=== PATIENT | female | born 1940 | race Caucasian/White ===

== ENCOUNTER 2020-02-12 19:44 | Inpatient (IN) | payer MEDICARE, OTHER ==
[~2020-02-12] VITALS: Ht 157.5 cm; Wt 91.2 kg
[2020-02-12] MEDS ORDERED: PIPER-TAZ 3.375 GM 50 ML IV ONE (20:15)
[2020-02-12] MEDS ORDERED: SODIUM CHLORIDE 0.9% 1000ML 1,000 ML IV ONE (20:15)
[2020-02-12] MEDS ORDERED: VANCOMYCIN 1GM/NS 250 ML 250 ML IV ONE (20:15)
[2020-02-12] MEDS ORDERED: SODIUM CHLORIDE 0.9% 1000ML 1,000 ML ONE (20:23)
--- NOTE | 2020-02-12 20:23 | Emergency Department Note ---
History of Present Illnes History of Present Illness Chief Complaint: Extremity Trauma/Pain History of Present Illness This is a 79 year old female c/o bilateral wounds to feet and heel areas for about a month. Surrounding tissue is red and painful to touch. . 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 Any updates have been documented here. Past Medical History Recent Fever: No Clinical Suspicion of Infectio: Yes New/Unexplained Change in Ment: No Past Medical History: Diabetes Other Medical History: arthritis lymphedma Past Surgical History: Hysterectomy, Social History Smoking Cessation: Never Smoker Alcohol Use: None Any Illegal Drug Use: No Family History Family history of heart diseas: No Other family history htn,dm Review of Systems Review of Systems Constitutional: Reports no symptoms EENTM: Reports no symptoms Cardiovascular: Reports no symptoms Respiratory: Reports no symptoms Gastrointestinal: Reports no symptoms Genitourinary: Reports no symptoms Musculoskeletal: Reports no symptoms Integumentary: Reports as per HPI Neurological: Reports no symptoms Psychological: Reports no symptoms Endocrine: Reports no symptoms Hematological/Lymphatic: Reports no symptoms Physical Exam Related Data Allergies: Coded Allergies: lisinopril (Verified Allergy, Unknown, 02/12/20) Triage Vital Signs Vital Signs Date Time Temp Pulse Resp B/P (MAP) Pulse Ox O2 Delivery O2 Flow Rate FiO2 02/12/20 19:59 97.9 119 22 143/108 100 Room Air Vital signs reviewed: Yes Physical Exam CONSTITUTIONAL Constitutional: Present well-developed, Present well-nourished; Absent distressed HENT HENT: Present normocephalic, Present atraumatic, Present oropharynx clear/moist, Present nose normal HENT L/R: Present left ext ear normal, Present right ext ear normal EYES Eyes: Reports PERRL, Reports conjunctivae normal NECK Neck: Present ROM normal PULMONARY Pulmonary: Present effort normal, Present breath sounds normal CARDIOVASCULAR Cardiovascular: Present regular rhythm, Present irregular rhythm, Present heart sounds normal, Present capillary refill normal, Present tachycardia GASTROINTESTINAL Abdominal: Present soft, Present nontender, Present bowel sounds normal GENITOURINARY Genitourinary: Present exam deferred SKIN pt with erythema and weeping to bilateral lower extremities with mild purulent drainage present pt with open wound to right heal, peeling of skin of bottom of both feet Skin: Present other MUSCULOSKELETAL Musculoskeletal: Present ROM normal NEUROLOGICAL Neurological: Present alert, Present oriented x 3, Present no gross motor or sensory deficits PSYCHOLOGICAL Psychological: Present mood/affect normal, Present judgement normal Results Laboratory Laboratory Laboratory Tests Test 02/12/20 21:44 02/12/20 20:11 Lactic Acid Level 2.2 mmol/L (0.5-2.0) 2.5 mmol/L (0.5-2.0) White Blood Count 8.43 x10e3/uL (4.8-10.8) Red Blood Count 5.45 x10e6/uL (3.6-5.1) Hemoglobin 14.1 g/dL (12.0-16.0) Hematocrit 43.5 % (34.2-44.1) Mean Corpuscular Volume 79.8 fL (81-99) Mean Corpuscular Hemoglobin 25.9 pg (28-32) Mean Corpuscular Hemoglobin Concent 32.4 g/dL (31-35) Red Cell Distribution Width 17.2 % (11.7-14.4) Platelet Count 222 x10e3/uL (140-360) Neutrophils (%) (Auto) 66.7 % (38.7-80.0) Lymphocytes (%) (Auto) 21.2 % (18.0-39.1) Monocytes (%) (Auto) 8.5 % (4.4-11.3) Eosinophils (%) (Auto) 2.5 % (0.0-6.0) Basophils (%) (Auto) 0.6 % (0.0-1.0) Neutrophils # (Auto) 5.6 (2.1-6.9) Lymphocytes # (Auto) 1.8 (1.0-3.2) Monocytes # (Auto) 0.7 (0.2-0.8) Eosinophils # (Auto) 0.2 (0.0-0.4) Basophils # (Auto) 0.1 (0.0-0.1) Absolute Immature Granulocyte (auto 0.04 x10e3/uL (0-0.1) Prothrombin Time 14.8 seconds (11.9-14.5) Prothromb Time International Ratio 1.10 Activated Partial Thromboplast Time 34.7 seconds (23.8-35.5) Sodium Level 135 mmol/L (136-145) Potassium Level 3.3 mmol/L (3.5-5.1) Chloride Level 96 mmol/L (98-107) Carbon Dioxide Level 24 mmol/L (22-29) Anion Gap 18.3 mmol/L (8-16) Blood Urea Nitrogen 20 mg/dL (7-26) Creatinine 0.97 mg/dL (0.57-1.11) Estimat Glomerular Filtration Rate 55 ML/MIN (60-) BUN/Creatinine Ratio 21 (6-25) Glucose Level 123 mg/dL (74-118) Calcium Level 9.2 mg/dL (8.4-10.2) Total Bilirubin 1.1 mg/dL (0.2-1.2) Aspartate Amino Transf (AST/SGOT) 24 IU/L (5-34) Alanine Aminotransferase (ALT/SGPT) 17 IU/L (0-55) Alkaline Phosphatase 69 IU/L (40-150) Creatine Kinase 172 IU/L (29-168) Creatine Kinase MB 2.50 ng/mL (0-5.0) Troponin I 0.066 ng/mL (0-0.300) B-Type Natriuretic Peptide 795.5 pg/mL (0-100) Total Protein 6.1 g/dL (6.5-8.1) Albumin 3.3 g/dL (3.5-5.0) Globulin 2.8 g/dL (2.3-3.5) Albumin/Globulin Ratio 1.2 (0.8-2.0) Lab results reviewed: Yes Imaging Imaging results reviewed: Yes Impressions EXAMINATION: CHEST SINGLE (PORTABLE) INDICATION: ^a fib ^[id number] ^2049 ^Y COMPARISON: None FINDINGS: AP view TUBES and LINES: None. LUNGS: Lungs are well inflated. Central vascular congestion and suspected mild interstitial edema. PLEURA: No significant pleural effusion or pneumothorax. HEART AND MEDIASTINUM: The cardiac silhouette is enlarged. BONES AND SOFT TISSUES: No acute osseous lesion. Soft tissues are unremarkable. UPPER ABDOMEN: No free air under the diaphragm. IMPRESSION: Enlarged cardiac silhouette, central vascular congestion, and suspected mild interstitial edema. Signed by: Dr. Lester Huizar MD on 02/12/2020 9:24 PM Dictated By: LESTER HUIZAR MD 23 Transcribed By: KONG on 02/12/202123 COPY TO: MANA CASILLAS MD~ Procedures 12 Lead ECG Interpretation ECG Interpretation : ECG: ECG 1 Roll Bucker: Interpreted by ED physician Date: Feb 12, 2020 Time: 20:05 Rhythm: atrial fibrillation Rate: tachycardia BPM: 117 Conduction: bifascicular block ST segments normal: No T wave inversion: V1, V2, V3 Other findings: no other findings Clinical Impression: abnormal ECG Assessment & Plan Medical Decision Making MDM pt with erythema, drainage to lower extremities and wounds to bilateral feet also found to be in afib with rvr cbc, cmp, blood cultures, cxr, ekg, cardiac enzymes, pt,ptt lactic acid ordered to eval for leukocytosis, sepsis, electrolyte abnormality, myocardial infarction zosyn 3.375 grams iv ordered vancomycin 1 gram iv ordered ns 1 liter ns iv ordered i spoke with dr dilcia silva and dr shanita cooper admit inpatient Assessment & Plan Final Impression: (1) Bilateral lower leg cellulitis (2) Open wnd of foot (3) Open wound of right foot (4) New onset a-fib Depart Disposition: ADMITTED Last Vital Signs Date Time Temp Pulse Resp B/P (MAP) Pulse Ox O2 Delivery O2 Flow Rate FiO2 02/12/20 19:59 97.9 119 22 143/108 100 Room Air Home Meds Reported Medications Levothyroxine Sodium (LEVOTHYROXINE SODIUM) 100 Mcg Tablet, 100 MCG PO DAILY 02/12/20 Metformin Hcl (METFORMIN HCL) 500 Mg Tablet, 500 MG PO BID 02/12/20 Atorvastatin Calcium (ATORVASTATIN CALCIUM) 20 Mg Tablet, 20 MG PO DAILY 02/12/20 Losartan Potassium (LOSARTAN POTASSIUM) 50 Mg Tablet, 50 MG PO DAILY 02/12/20 Hydrochlorothiazide* (ESIDRIX*) 25 Mg Tab, 25 MG PO DAILY 02/12/20 MANA CASILLAS MD Feb 12, 2020 20:23
[2020-02-12 20:31] LABS: BASOPHILS # (AUTO) 0.1 (0.0-0.1); BASOPHILS % 0.6 % (0.0-1.0); EOSINOPHILS # (AUTO) 0.2 (0.0-0.4); EOSINOPHILS % 2.5 % (0.0-6.0); HEMATOCRIT 43.5 % (34.2-44.1); HEMOGLOBIN 14.1 g/dL (12.0-16.0); LYMPHOCYTES # (AUTO) 1.8 (1.0-3.2); LYMPHOCYTES % 21.2 % (18.0-39.1); MEAN CORPUSCULAR HEMOGLOBIN 25.9 pg (28-32); MEAN CORPUSCULAR HGB CONC 32.4 g/dL (31-35); MEAN CORPUSCULAR VOLUME 79.8 fL (81-99); MONOCYTES # (AUTO) 0.7 (0.2-0.8); MONOCYTES % 8.5 % (4.4-11.3); NEUTROPHILS # (AUTO) 5.6 (2.1-6.9); NEUTROPHILS % 66.7 % (38.7-80.0); PLATELET COUNT 222 x10e3/uL (140-360); RED BLOOD COUNT 5.45 x10e6/uL (3.6-5.1); RED CELL DISTRIBUTION WIDTH 17.2 % (11.7-14.4)
[2020-02-12 20:43] LABS: INR 1.1; PROTHROMBIN TIME 14.8 seconds (11.9-14.5)
[2020-02-12 20:44] LABS: PARTIAL THROMBOPLASTIN TIME 34.7 seconds (23.8-35.5)
--- NOTE | 2020-02-12 20:49 | NUR ---
LACTIC ACID 2.5, DR. CASILLAS NOTIFIED
[2020-02-12 20:50] LABS: ALBUMIN 3.3 g/dL (3.5-5.0); ALBUMIN/GLOBULIN RATIO 1.2 (0.8-2.0); ANION GAP 18.3 mmol/L (8-16); CALCIUM 9.2 mg/dL (8.4-10.2); CREATININE, SERUM 0.97 mg/dL (0.57-1.11); POTASSIUM 3.3 mmol/L (3.5-5.1)
[2020-02-12] MEDS ORDERED: ENOXAPARIN SODIUM INJ 100 MG/ML SYR SC STA (20:50)
[2020-02-12 20:57] LABS: CREATINE KINASE MB 2.5 ng/mL (0-5.0)
[2020-02-12] MEDS ORDERED: METOPROLOL TARTRATE INJ 1 MG/ML VIAL IV ONE (21:00)
[2020-02-12 21:05] LABS: B-TYPE NATRIURETIC PEPTIDE2 795.5 pg/mL (0-100)
--- NOTE | 2020-02-12 21:28 | Diagnostic Imaging Report ---
EXAMINATION: CHEST SINGLE (PORTABLE) INDICATION: ^a fib ^[id number] ^2049 ^Y COMPARISON: None FINDINGS: AP view TUBES and LINES: None. LUNGS: Lungs are well inflated. Central vascular congestion and suspected mild interstitial edema. PLEURA: No significant pleural effusion or pneumothorax. HEART AND MEDIASTINUM: The cardiac silhouette is enlarged. BONES AND SOFT TISSUES: No acute osseous lesion. Soft tissues are unremarkable. UPPER ABDOMEN: No free air under the diaphragm. IMPRESSION: Enlarged cardiac silhouette, central vascular congestion, and suspected mild interstitial edema. Signed by: Dr. Lester Jaquez MD on 02/12/2020 9:24 PM
--- OUTSIDE RECORDS SUMMARY | 2020-02-12 21:37 | XMS REPORT | Continuity of Care Document ---
Author Author [facility] t Organization [facility] Address [address] [place] [address] Phone Unavailable Care Team Providers Care Olive Grader Name Role Phone Carlos A CASILLAS Attphys Unavailable KATHRYN ZUNIGA D.O. Attphys Unavailable Problems Condition Name Condition Details Condition Category Status Onset Date Resolution Date Last Treatment Date Treating Clinician Comments Source History of arthritis History of arthritis Problem Resolved [facility] History of diabetes mellitus History of diabetes mellitus Problem Re solved [facility] History of edema History of edema Problem Resolved [facility] History of Tumor of soft tissue of neck History of Tumor of soft tissue of neck Problem Resolved [facility] Diabetes mellitus type 2, controlled Diabetes mellitus type 2, controlled Problem Active [facility] Essential hypertension Essential hypertension Problem Active [facility] Mixed hyperlipidemia Mixed hyperlipidemia Problem Active [facility] Cellulitis, diffuse Cellulitis, diffuse Problem Active [facility] Hypothyroidism Hypothyroidism Problem Active [facility] Allergies, Adverse Reactions, Alerts Allergy Name Allergy Type Status Severity Reaction(s) Onset Date Inacti ve Date Treating Clinician Comments Source Lisinopril TABS Allergy to drug (finding) Active [facility] metoprolol Allergy to drug (finding) Active [facility] Family History Family Member Diagnosis Comments Start Date Stop Date Source natural son Family history of essential hypertension [facility] Mother Family history of heart attack [facility] Social History Smoking Status Start Date Stop Date Source [facility] smoked [facility]finding[facility] Medications Ordered Medication Name Filled Medication Name Start Date Stop Da te Current Medication? Ordering Clinician Indication Dosage Frequency Signature (SIG) Comments Components Source Cephalexin 500 MG Oral Tablet Cephalexin 500 MG Oral Tablet 2018 00:00:00 Yes KATHRYN ZUNIGA D.O. 1 Q0.5D TAKE 1 TABLET TWICE D AILY [facility] Accu-Chek Guide In Vitro Strip Accu-Chek Guide In Vitro Stri p 2019-03-18 00:00:00 Yes MATHEUS-IZZY ZUNIGA D.O. CHECK BG 1X DAY [facility] Accu-Chek Multiclix Lancets Accu-Chek Multiclix Lancets 2019-03-18 00:00:00 Yes MATHEUS-IZZY YEH D.O. USE AND D ISCARD 1 LANCET DAILY TO GO WITH COVERED GLUCOMETER [facility] metFORMIN HCl - 500 MG Oral Tablet metFORMIN HCl - 500 MG Or al Tablet 2019-03-08 00:00:00 Yes MATHEUS-IZZY SIMONH D.O. 1 Q0.5D TAKE 1 TABLET TWI CE DAILY [facility] Losartan Potassium 50 MG Oral Tablet Losartan Potassium 50 M G Oral Tablet 2019-03-08 00:00:00 Yes MATHEUS-IZZY YEH D.O. 1 QD TAKE 1 TABLET DAILY. [facility] Atorvastatin Calcium 20 MG Oral Tablet Atorvastatin Calcium 20 MG Oral Tablet 2019-03-08 00:00:00 Yes MATHEUS-IZZY SIMONH D.O. 1 QD TAKE 1 TABLET DAILY. [facility] hydroCHLOROthiazide 25 MG Oral Tablet hydroCHLOROthiazide 25 MG Oral Tablet 2019-03-08 00:00:00 Yes MATHEUS-IZZY SIMONH D.O. Q D TAKE 1 TABLET DAILY DIRECTED. [facility] Levothyroxine Sodium 100 MCG Oral Tablet Levothyroxine Sodium 100 MCG Oral Tablet 2019-03-08 00:00:00 Yes MATHEUS-IZZY YEH D.O. 1 Q D TAKE 1 TABLET DAILY. [facility] Centrum Silver 50+Women Oral Tablet Centrum Silver 50+Women Oral Tablet 2019-03-08 00:00:00 Yes 1 QD TAKE 1 TABLET LISA Y. [facility] Ocuvite Extra Oral Tablet Ocuvite Extra Oral Tablet 2019-03-08 00:00:0 0 Yes 1 QD TAKE 1 TABLET DAILY. [facility] Probiotic Oral Capsule Probiotic Oral Capsule 2019-03-08 00:00:00 Yes USE DIRECTED. [facility] Vitamin D3 75 MCG (3000 UT) Oral Tablet Vitamin D3 75 MCG (3 000 UT) Oral Tablet 2019-03-08 00:00:00 Yes 3 daily [facility] Vital Signs Vital Name Observation Time Observation Value Comments Source BP Systolic 2019-07-21 12:11:00 135 mm[Hg] Location: RUE; Positi on: Sitting [facility] BP Diastolic 2019-07-21 12:11:00 84 mm[Hg] Location: RUE; Positi on: Sitting [facility] Heart Rate 2019-07-21 12:11:00 78 /min [facility] BP Systolic 2019-07-21 12:07:00 170 mm[Hg] Location: LUE; Positi on: Sitting [facility] BP Diastolic 2019-07-21 12:07:00 103 mm[Hg] Location: LUE; Positi on: Sitting [facility] Heart Rate 2019-07-21 12:07:00 87 /min [facility] Weight 2019-07-21 12:07:00 209 [lb_av] [facility] Body Mass Index Calculated 2019-07-21 12:07:00 38.23 kg/m2 [facility] Height 2019-07-21 12:07:00 62 [in_us] [facility] Temperature 2019-07-21 12:07:00 97.6 [degF] Method: [facility] Respiration Rate 2019-07-21 12:07:00 16 /min [facility] BP Systolic 2019-03-18 14:56:00 166 mm[Hg] Location: LUE; Positi on: Sitting [facility] BP Diastolic 2019-03-18 14:56:00 66 mm[Hg] Location: LUE; Positi on: Sitting [facility] Weight 2019-03-18 14:56:00 212 [lb_av] [facility] Body Mass Index Calculated 2019-03-18 14:56:00 38.78 kg/m2 [facility] Height 2019-03-18 14:56:00 62 [in_us] [facility] Temperature 2019-03-18 14:56:00 98.6 [degF] Method: [facility]poral [facility] Respiration Rate 2019-03-18 14:56:00 16 /min [facility] Heart Rate 2019-03-18 14:56:00 84 /min [facility] Weight 2019-03-08 10:20:00 212 [lb_av] [facility] Height 2019-03-08 10:20:00 62 [in_us] [facility] Body Mass Index Calculated 2019-03-08 10:20:00 38.78 kg/m2 [facility] Temperature 2019-03-08 10:20:00 98.3 [degF] Method: Temporal [facility] Respiration Rate 2019-03-08 10:20:00 16 /min [facility] Procedures Procedure Date / Time Performed Performing Clinician Sour e History of Tumor excision [facility] History of Section [facility] History of Hysterectomy [facility] Encounters Start Date/Time End Date/Time En[facility] ID Source 2019-07-21 12:00:00 2019-07-21 12:00:00 Appointment; KATHRYN ZUNIGA D.O. YEH, SHAO-CHUN, D.O. [facility] [id number] [facility] 2019-03-18 15:00:00 2019-03-18 15:00:00 Appointment; KATHRYN ZUNIGA D.O. YEH, SHAO-CHUN, D.O. [facility] [id number] [facility] 2019-03-08 10:00:00 2019-03-08 10:00:00 Appointment; KATHRYN ZUNIGA D.O. YEH, SHAO-CHUN, D.O. [facility], [address] [id number] [facility] Results Test Description Test Time Test Comments Results Result Comments Source CHEST SINGLE (PORTABLE) 2020-02-12 21:23:00 [place] [address] Patient Name: KATELYN SILVA MR #: [id number] : 1940 Age/Sex: 79/F Req #: [id number] Adm Physician: Ordered by: MANA CASILLAS MD Report #: [id number] Location: ER Room/Bed: Procedure: [id number] DX/CHEST SINGLE (PORTABLE) Exam Date: 02/12/20 Exam Time: 2049 REPORT STATUS: Signed EXAMINATION: CHEST SINGLE (PORTABLE) INDICATION: a fib [id number] Y COMPARISON: None FINDINGS: AP view TUBES and LINES: None. LUNGS: Lungs are well inflated. Central vascular congestion and suspected mild interstitial edema. PLEURA: No significant pleural effusion or pneumothorax. HEART AND MEDIASTINUM: The cardiac silhouette is enlarged. BONES AND SOFT TISSUES: No acute osseous lesion. Soft tissues are unremarkable. UPPER ABDOMEN: No free air under the diaphragm. IMPRESSION: Enlarged cardiac silhouette, central vascular congestion, and suspected mild interstitial edema. Signed by: Dr. Lester Huizar MD on 02/12/2020 9:24 PM Dictated By: LESTER HUIZAR MD 23 Transcribed By: KONG on 02/12/202123 COPY TO: MANA CASILLAS MD
--- OUTSIDE RECORDS SUMMARY | 2020-02-12 21:38 | XMS REPORT | Summary of Care ---
Author Author KATELYN ZUNIGA D.O. Organization Unknown Address Unknown Phone Unavailable Care Team Providers Care Kids Club Attendant Name Role Phone KATHRYN ZUNIGA D.O. Unavailable Unavailable KATHRYN PITTMAN Unavailable Unavailable MCKAYLA TANNER, ELENA PPIER Unavailable Unavailable Unavailable Unavailable Functional Status Name Dates Details Functional status health issues are not documented Status: Name Dates Details Cognitive status health issues are not d ocumented Status: Problems Name Dates Details Cellulitis, diffuse (682.9, L03.90) Status: Active Diabetes mellitus type 2, controlled (25 0.00, E11.9) Status: Active Hypothyroidism (244.9, E03.9) Status: Active Essential hypertension (401.9, I10) Status: Active Mixed hyperlipidemia (272.2, E78.2) Status: Active Medications Name Dates Details metFORMIN HCl - 500 MG Oral Tablet TAKE 1 TABLET TWICE DAILY Quantity: 180 YEH D.O., MATHEUS-IZZY * Start : 08-Mar-2019 Active Losartan Potassium 50 MG Oral Tablet TAKE 1 TABLET DAILY. * Quantity: 90 Refills: 1 YEH D.O., MATHEUS-IZZY * Start : 08-Mar-2019 Active Atorvastatin Calcium 20 MG Oral Tablet TAKE 1 TABLET DAILY. * Quantity: 90 Refills: 1 YEH D.O., MATHEUS-IZZY * Start : 08-Mar-2019 Active hydroCHLOROthiazide 25 MG Oral Tablet TAKE 1 TABLET DAILY DIRECTED. * Quantity: 90 Refills: 1 YEH D.O., MATHEUS-IZZY * Start : 08-Mar-2019 Active Levothyroxine Sodium 100 MCG Oral Tablet TAKE 1 TABLET DAILY. * Quantity: 90 Refills: 1 YEH D.O., MATHEUS-IZZY * Start : 08-Mar-2019 Active Centrum Silver 50+Women Oral Tablet TAKE 1 TABLET DAILY. * Refills: 0 * Start : 08-Mar-2019 Active Ocuvite Extra Oral Tablet TAKE 1 TABLET DAILY. * Refills: 0 * Start : 08-Mar-2019 Active Probiotic Oral Capsule USE DIRECTED. * Refills: 0 * Start : 08-Mar-2019 Active Vitamin D3 75 MCG (3000 UT) Oral Tablet 3 daily * Refills: 0 * Start : 08-Mar-2019 Active Cephalexin 500 MG Oral Tablet TAKE 1 TABLET TWICE DAILY * Quantity: 20 Refills: 0 YEH D.O., MATHEUS-IZZY * Start : 18-Mar-2019 Active Accu-Chek Guide In Vitro Strip CHECK BG 1X DAY * Quantity: 1 Refills: 1 YEH D.O., [place] * Start : 18-Mar-2019 Active 100 Strip Box Accu-Chek Multiclix Lancets USE AND DISCARD 1 LANCET DAILY TO GO WITH COVERED GLUCOMETER * Quantity: 100 Refills: 1 YEH D.O., MATHEUS-IZZY * Start : 18-Mar-2019 Active Allergies and Adverse Reactions Name Dates Details Lisinopril TABS (Allergy) Status: Active metoprolol (Allergy) Status: Active Past Medical History Name Dates Details History of arthritis (V13.4, Z87.39) Status: Resolved History of diabetes mellitus (V12.29, Z8 6.39) Status: Resolved History of edema (V13.89, Z87.898) Status: Resolved History of Tumor of soft tissue of neck (239.2, D49.2) Status: Resolved Procedures Procedure Dates Details History of Tumor excision Completed History of Section Completed History of Hysterectomy Completed Immunization Name Dates Details Immunizations not documented Family History Name Dates Details Family history of essential hypertension (V17.49, Z82.49) Status: Active Name Dates Details Family history of heart attack (V17.3, Z 82.49) Status: Active Social History Name Dates Details - Status: Name Dates Details Never smoker Vital Signs Date Test Result Details :11 BP Systolic 135 mm[Hg] Status: Comments: Lo cation: RUE; Position: Sitting BP Diastolic 84 mm[Hg] Status: Comments: Lo cation: RUE; Position: Sitting Heart Rate 78 /min Status: :07 BP Systolic 170 mm[Hg] Status: Comments: Lo cation: LUE; Position: Sitting BP Diastolic 103 mm[Hg] Status: Comments: Lo cation: LUE; Position: Sitting Heart Rate 87 /min Status: Weight 209 lb Status: Body Mass Index Calculated 38.23 kg/m2 Status: Body Surface Area Calculated 1.95 m2 Status: Height 62 in Status: Temperature 97.6 f Status: Comments: Me thod: Temporal Respiration Rate 16 /min Status: Results Date Description Value Details Results not documented Plan of Care Name Dates Details Planned Observations Planned Goals not documented Interventions Provided Medication Changes* Atorvastatin Calcium 20 MG Oral Tablet - Renew * hydroCHLOROthiazide 25 MG Oral Tablet - Renew * Levothyroxine Sodium 100 MCG Oral Tablet - Renew * Losartan Potassium 50 MG Oral Tablet - Renew * metFORMIN HCl - 500 MG Oral Tablet - Renew Plan* DM-II - stable. Continue Metformin * HTN - stable. Continue Losartan, HCTZ * Hypothyroidism - stable. Continue Levothyroxine * HLD - stable. Continue Atorvastatin * Transfer records to new PCP in [place] when requested * Follow-up in 6 months, sooner if needed Instructions Name Dates Details Instructions not documented Encounters Appointment; KATHRYN ZUNIGA D.O. Encounter Diagnosis: Problem not documented On: 08-Mar-2019 10:00 Appointment; KATHRYN ZUNIGA D.O. Encounter Diagnosis: Problem not documented On: 18-Mar-2019 15:00 Appointment; KATHRYN ZUNIGA D.O. Encounter Diagnosis: Problem not documented On: 21-Jul-2019 12:00
--- OUTSIDE RECORDS SUMMARY | 2020-02-12 21:38 | XMS REPORT | Summary of Care ---
Author Author KATELYN Viera M.A. y Organization Unknown Address [facility] Phone Unavailable Care Team Providers Care [employer] Name Role Phone Hannah Viera M.A. Unavailable Unavailable YEH D.O., KATHRYN Unavailable Unavailable YEH DO [facility], KATHRYN Unavailable Unavailable MCKAYLA HERRERA [place], ELENA PIPER Unavailable Unavailable Unavailable Unavailable Functional Status Name [...] * Quantity: 1 Refills: 1 YEH D.O., MATHEUS-IZZY * Start : 18-Mar-2019 Active 100 Strip Box Accu-Chek Multiclix Lancets USE AND DISCARD 1 LANCET DAILY TO GO WITH COVERED GLUCOMETER * Quantity: 100 Refills: 1 YEH D.O., MATHUES-IZZY * Start : 18-Mar-2019 Active Allergies and [...] Details - Status: Name Dates Details Never smoked tobacco (finding) Vital Signs Date Test Result Details No Known Vitals to report Results Date Description Value Details Results not documented Plan of Care Name Dates Details Planned Observations Planned Goals not documented Instructions Name Dates Details Instructions not documented Encounters Appointment; KATHRYN ZUNIGA D.O. Encounter Diagnosis: Problem not documented On: 08-Mar-2019 10:00 Appointment; KATHRYN ZUNIGA D.O. Encounter Diagnosis: Problem not documented On: 18-Mar-2019 15:00 Appointment; KATHRYN ZUNIGA D.O. Encounter Diagnosis: Problem not documented On: 21-Jul-2019 12:00
[2020-02-12] MEDS ORDERED: METFORMIN HCL500 MG PO (22:16)
[2020-02-12] MEDS ORDERED: LEVOTHYROXINE100 MCG PO (22:16)
[2020-02-12] MEDS ORDERED: ESIDRIX25 MG PO (22:16)
[2020-02-12] MEDS ORDERED: LOSARTAN POTASS50 MG PO (22:16)
[2020-02-12] MEDS ORDERED: ATORVASTATIN CA20 MG PO (22:16)
--- NOTE | 2020-02-12 22:22 | NUR ---
LACTIC 2.2, DR. CASILLAS NOTIFIED
[2020-02-12] MEDS ORDERED: DEXTROSE 50% SYRINGE 50 ML IV PRN (23:00)
[2020-02-12] MEDS ORDERED: ASPIRIN 81 MG CHEW TAB PO ONE (23:00)
[2020-02-12] MEDS ORDERED: ONDANSETRON HCL INJ 2MG/ML 2ML 2 MG/ML VIAL IV PRN (23:00)
[2020-02-12] MEDS: VANCOMYCIN 1GM/NS 250 ML 250 ML IV SCH (23:09)
[2020-02-12] MEDS: ENOXAPARIN SODIUM INJ 100 MG/ML SYR SC SCH (23:10)
--- OUTSIDE RECORDS SUMMARY | 2020-02-12 23:32 | XMS REPORT | Continuity of Care Document ---
Author Author [facility] t Organization [facility] Address [address] [place] [address] Phone Unavailable Care Team Providers Care Paramedic Name Role Phone Carlos A CASILLAS Attphys Unavailable KATHRYN ZUNIGA D.O. Attphys Unavailable Problems Condition Name Condition Details Condition Category Status Onset Date Resolution Date Last Treatment Date Treating Clinician Comments Source History of arthritis History of arthritis Problem Resolved [facility] History of diabetes mellitus History of diabetes mellitus Problem Re solved [facility] History of edema History of edema Problem Resolved [facility] History of Tumor of soft tissue of neck History of Tumor of soft tissue of neck Problem Resolved [facility] Diabetes mellitus type 2, controlled Diabetes mellitus type 2, controlled Problem Active [facility] Essential hypertension Essential hypertension Problem Active [facility] Mixed hyperlipidemia Mixed hyperlipidemia Problem Active [facility] Cellulitis, diffuse Cellulitis, diffuse Problem Active [facility] Hypothyroidism Hypothyroidism Problem Active [facility] Allergies, Adverse Reactions, Alerts Allergy Name Allergy Type Status Severity Reaction(s) Onset Date Inacti ve Date Treating Clinician Comments Source Lisinopril TABS Allergy to drug (finding) Active [facility] metoprolol Allergy to drug (finding) Active [facility] Family History Family Member Diagnosis Comments Start Date Stop Date Source natural son Family history of essential hypertension [facility] Mother Family history of heart attack [facility] Social History Smoking Status Start Date Stop Date Source [facility] smoked tobacco (finding) [facility] Medications Ordered Medication Name Filled Medication Name Start Date Stop Da te Current Medication? Ordering Clinician Indication Dosage Frequency Signature (SIG) Comments Components Source Cephalexin 500 MG Oral Tablet Cephalexin 500 MG Oral Tablet 2018 00:00:00 Yes KATHRYN ZUNIGA D.O. 1 Q0.5D TAKE 1 TABLET TWICE D AILY [facility] Accu-Chek Guide In Vitro Strip Accu-Chek Guide In Vitro Stri p 2019-03-18 00:00:00 Yes MATHEUS-IZZY ZUNIGA D.O. CHECK BG 1X DAY [facility] Accu-Chek Multiclix Lancets Accu-Chek Multiclix Lancets 2019-03-18 00:00:00 Yes MATHEUS-IZZY YEH D.O. USE AND D ISCARD 1 LANCET DAILY TO GO WITH COVERED GLUCOMETER [facility] metFORMIN HCl - 500 MG Oral Tablet metFORMIN HCl - 500 MG Or al Tablet 2019-03-08 00:00:00 Yes MATHEUS-IZZY SIMONH D.O. 1 Q0.5D TAKE 1 TABLET TWI CE DAILY [facility] Losartan Potassium 50 MG Oral Tablet Losartan Potassium 50 M G Oral Tablet 2019-03-08 00:00:00 Yes MATHEUS-IZZY YEH D.O. 1 QD TAKE 1 TABLET DAILY. [facility] Atorvastatin Calcium 20 MG Oral Tablet Atorvastatin Calcium 20 MG Oral Tablet 2019-03-08 00:00:00 Yes MATHEUS-IZZY SIMONH D.O. 1 QD TAKE 1 TABLET DAILY. [facility] hydroCHLOROthiazide 25 MG Oral Tablet hydroCHLOROthiazide 25 MG Oral Tablet 2019-03-08 00:00:00 Yes MATHEUS-IZZY SIMONH D.O. Q D TAKE 1 TABLET DAILY DIRECTED. [facility] Levothyroxine Sodium 100 MCG Oral Tablet Levothyroxine Sodium 100 MCG Oral Tablet 2019-03-08 00:00:00 Yes MATHEUS-IZZY YEH D.O. 1 Q D TAKE 1 TABLET DAILY. [facility] Centrum Silver 50+Women Oral Tablet Centrum Silver 50+Women Oral Tablet 2019-03-08 00:00:00 Yes 1 QD TAKE 1 TABLET LISA Y. [facility] Ocuvite Extra Oral Tablet Ocuvite Extra Oral Tablet 2019-03-08 00:00:0 0 Yes 1 QD TAKE [address] [facility] Probiotic Oral Capsule Probiotic Oral Capsule 2019-03-08 00:00:00 Yes USE DIRECTED. [facility] Vitamin D3 75 MCG (3000 UT) Oral Tablet Vitamin D3 75 MCG (3 000 UT) Oral Tablet 2019-03-08 00:00:00 Yes 3 daily [facility] Vital Signs Vital Name Observation Time Observation Value Comments Source BP Systolic 2019-07-21 12:11:00 135 mm[Hg] Location: RUE; Positi on: Sitting [facility] BP Diastolic 2019-07-21 12:11:00 84 mm[Hg] Location: RUE; Positi on: Sitting [facility] Heart Rate 2019-07-21 12:11:00 78 /min [facility] BP Systolic 2019-07-21 12:07:00 170 mm[Hg] Location: LUE; Positi on: Sitting [facility] BP Diastolic 2019-07-21 12:07:00 103 mm[Hg] Location: LUE; Positi on: Sitting [facility] Heart Rate 2019-07-21 12:07:00 87 /min [facility] Weight 2019-07-21 12:07:00 209 [lb_av] [facility] Body Mass Index Calculated 2019-07-21 12:07:00 38.23 kg/m2 [facility] Height 2019-07-21 12:07:00 62 [in_us] [facility] Temperature 2019-07-21 12:07:00 97.6 [degF] Method: [facility] Respiration Rate 2019-07-21 12:07:00 16 /min [facility] BP Systolic 2019-03-18 14:56:00 166 mm[Hg] Location: LUE; Positi on: Sitting [facility] BP Diastolic 2019-03-18 14:56:00 66 mm[Hg] Location: LUE; Positi on: Sitting [facility] Weight 2019-03-18 14:56:00 212 [lb_av] [facility] Body Mass Index Calculated 2019-03-18 14:56:00 38.78 kg/m2 [facility] Height 2019-03-18 14:56:00 62 [in_us] [facility] Temperature 2019-03-18 14:56:00 98.6 [degF] Method: Temporal [facility] Respiration Rate 2019-03-18 14:56:00 16 /min [facility] Heart Rate 2019-03-18 14:56:00 84 /min [facility] Weight 2019-03-08 10:20:00 212 [lb_av] [facility] Height 2019-03-08 10:20:00 62 [in_us] [facility] Body Mass Index Calculated 2019-03-08 10:20:00 38.78 kg/m2 [facility] Temperature 2019-03-08 10:20:00 98.3 [degF] Method: Temporal [facility] Respiration Rate 2019-03-08 10:20:00 16 /min [facility] Procedures Procedure Date / Time Performed Performing Clinician Sour e History of Tumor excision [facility] History of Section [facility] History of Hysterectomy [facility] Encounters Start Date/Time End Date/Time Encounter Type [facility]counter ID Source 2019-07-21 12:00:00 2019-07-21 12:00:00 Appointment; KATHRYN ZUNIGA D.O. YEH, SHAO-CHUN, D.O. [facility] [id number] [facility] 2019-03-18 15:00:00 2019-03-18 15:00:00 Appointment; KATHRYN ZUNIGA D.O. YEH, SHAO-CHUN, D.O. [facility] [id number] [facility] 2019-03-08 10:00:00 2019-03-08 10:00:00 Appointment; KATHRYN ZUNIGA D.O. YEH, SHAO-CHUN, D.O. [facility], [address] [id number] [facility] Results Test Description Test Time Test Comments Results Result Comments Source CHEST SINGLE (PORTABLE) 2020-02-12 21:23:00 [place] [address] Patient Name: KATELYN SILVA MR #: [id number] : 1940 Age/Sex: 79/F Req #: [id number] Adm Physician: Ordered by: MANA CASILLAS MD Report #: [id number] Location: ER Room/Bed: Procedure: [id number] DX/CHEST SINGLE (PORTABLE) Exam Date: 02/12/20 Exam [...]
[2020-02-13] VITALS (9 sets, daily range): BP systolic 94–123; BP diastolic 55–81
[2020-02-13] MEDS: METOPROLOL TARTRATE 25 MG TAB PO SCH ×4 (01:00→21:22)
--- NOTE | 2020-02-13 03:34 | NUR ---
Notified Fern Dickinson pt. Lactate 2.9. No orders received.
[2020-02-13] MEDS: PIPER-TAZ 3.375 GM 50 ML IV SCH ×3 (05:51→21:32)
[2020-02-13 07:12] LABS: BASOPHILS # (AUTO) 0.1 (0.0-0.1); BASOPHILS % 0.7 % (0.0-1.0); EOSINOPHILS # (AUTO) 0.1 (0.0-0.4); EOSINOPHILS % 1.7 % (0.0-6.0); HEMATOCRIT 45.2 % (34.2-44.1); HEMOGLOBIN 13.7 g/dL (12.0-16.0); LYMPHOCYTES % 14.6 % (18.0-39.1); MEAN CORPUSCULAR HEMOGLOBIN 25.8 pg (28-32); MEAN CORPUSCULAR HGB CONC 30.3 g/dL (31-35); MONOCYTES # (AUTO) 0.8 (0.2-0.8); MONOCYTES % 11.6 % (4.4-11.3); NEUTROPHILS % 70.7 % (38.7-80.0); PLATELET COUNT 156 x10e3/uL (140-360); RED BLOOD COUNT 5.32 x10e6/uL (3.6-5.1); RED CELL DISTRIBUTION WIDTH 17.3 % (11.7-14.4)
--- NOTE | 2020-02-13 07:20 | NUR ---
PATIENT IS AWAKE, ALERT, AND IN STABLE CONDITION WITH NO S/S OF RESPIRATORY DISTRESS. NO PAIN VOICED. TELEMETRY APPLIED. BILATERAL LOWER EXTREMITY REDNESS AND ULCERATIONS NOTED, ULCERATION NOTED EACH HEEL, ABD REDNESS AND ULCERATIONS NOTED WELL DRAINAGE, AND REDNESS NOTED UNDER BREAST AREA. WOUND CARE CONSULT PLACED. CALL LIGHT IS WITHIN REACH, PATIENT INSTRUCTED TO CALL FOR ASSISTANCE.
[2020-02-13 07:29] LABS: ALANINE AMINOTRANSFERASE 15 IU/L (0-55); ALBUMIN 2.8 g/dL (3.5-5.0); ALBUMIN/GLOBULIN RATIO 1.1 (0.8-2.0); ALKALINE PHOSPHATASE 60 IU/L (40-150); ANION GAP 17.3 mmol/L (8-16); BLOOD UREA NITROGEN 18 mg/dL (7-26); BUN/CREATININE RATIO 20 (6-25); CALCIUM 8.6 mg/dL (8.4-10.2); CARBON DIOXIDE 21 mmol/L (22-29); CHLORIDE 101 mmol/L (98-107); CHOL/HDL RATIO 3.1 (3.0-3.6); CHOLESTEROL 101 MD/DL (0-199); CREATININE, SERUM 0.88 mg/dL (0.57-1.11); EST GLOMERULAR FILTRATION RATE > 60 ML/MIN (60-); GLUCOSE 96 mg/dL (74-118); HDL CHOLESTEROL 33 MG/DL (40-60); LDL CHOLESTEROL 55 MG/DL (60-130); POTASSIUM 3.3 mmol/L (3.5-5.1); SODIUM 136 mmol/L (136-145); TRIGLYCERIDES 64 MG/DL (0-149)
[2020-02-13] MEDS: INSULIN REGULAR, HUMAN 100 UNIT/1 ML 3ML VIAL SQ SCH ×4 (07:30→21:00)
[2020-02-13 08:04] LABS: CREATINE KINASE MB 2.1 ng/mL (0-5.0)
[2020-02-13] MEDS ORDERED: SODIUM CHLORIDE 0.9% 250ML 250 ML ONE (11:05)
[2020-02-13] MEDS: ENOXAPARIN SODIUM INJ 100 MG/ML SYR SC SCH ×2 (11:26→23:03)
[2020-02-13] MEDS: VANCOMYCIN 1GM/NS 250 ML 250 ML IV SCH ×2 (11:26→23:03)
[2020-02-13] MEDS ORDERED: METOPROLOL TARTRATE 25 MG TAB PO SCH (11:45)
[2020-02-13] MEDS ORDERED: POTASSIUM CHLORIDE 20 MEQ TAB CR PO STA (12:14)
--- NOTE | 2020-02-13 12:40 | NUR ---
ROUNDED ON PATIENT- WOUND CARE NURSE IS PRESENT IN ROOM. ASSISTED WOUND CARE NURSE WITH PATIENT'S DRESSING. CALLED [employer] FOR MORE SUPPLIES FOR PATIENT.
--- NOTE | 2020-02-13 13:59 | Consultation ---
DATE OF CONSULTATION: HISTORY OF PRESENT ILLNESS: Ms. Watson is a 79-year-old female with bilateral wounds of bilateral lower extremities, here for about a month. The patient comes in with worsening pain and redness. The patient is being admitted. The patient has been having problem with her feet for more than a month. PAST MEDICAL HISTORY: She does have history of diabetes mellitus. She also has history of hysterectomy, lymphedema, arthritis, . SOCIAL HISTORY: No smoking, drug abuse, or alcohol abuse. LABORATORY DATA: The patient was admitted. Her white count is 8.43, hemoglobin 14. Her COVID-19 was still pending. Her sodium 136, potassium and creatinine 0.88. MEDICATIONS: She is currently on: 1. Vancomycin. 2. Lovenox. 3. Zosyn. PHYSICAL EXAMINATION: GENERAL: She is currently alert and oriented. VITAL SIGNS: Stable. Currently afebrile. HEENT: She does not appear icteric. NECK: Supple. CHEST: Clear bilateral. HEART: S1, S2. ABDOMEN: Soft. EXTREMITIES: Bilateral lower extremity, there is erythema, there is edema. IMPRESSION: 1. Cellulitis of bilateral lower extremities, bilateral lymphedema. Continue vancomycin. Continue with Zosyn, thigh-high elastic stocking. We will follow vancomycin level. Recheck CBC. Recheck Chem panel. Wound care. 2. Neuropathy. 3. We will follow. MD MIESHA Casillas/AJAY /[id number]
[2020-02-13 15:41] LABS: CREATINE KINASE MB 1.8 ng/mL (0-5.0)
--- NOTE | 2020-02-13 17:17 | NUR ---
WOUND CARE INITIAL CONSULT FOR 79 YO FEMALE ADMITTED TO [facility] WITH A PRESENT HX DM, LYMPHEDEMA, ARTHRITIS, BILATERAL LOWER LEG CELLULITES AND A-FIB. PAULA 14 ON MODERATE PUP STATUS AND INTERVENTIONS SURFACE: ALTERNATING PRESSURE MATTRESS. LABS: WBC- 7.04 HGB- 13.7 GLUCOSE: 96 ALBUMIN-2.8 MEDS: PIPERACILLIN SOD/TAZOBACTAM SOD. VANCOMYCIN HCL SEE E MAR FOR DOSAGE. INFECTIOUS DISEASE MD ON CASE. SKIN ASSESSMENT COMPLETE, PATIENT PRESENTS WITH 1)RED BLANCHABLE AREA TO ABDOMINAL FOLD AND ERLIN AREA WITH MULTIPLE OPEN WOUNDS COVERED WITH 100% YELLOW SLOUGH; MEASURING 33 CM X 44 CMX 0.1 CM. MODERATE SEROUS SANGUINOUS DRAINAGE PRESENT. 2)RED BLANCHABLE AREA WITH MULTIPLE OPEN WOUNDS TO LEFT LOWER LEG MEASURING 15 CM X 18 CM X 0.1 CM. MODERATE SEROSANGUINEOUS DRAINAGE. IRREGULAR ATROPHIC MACERATED PERIWOUND AND 95% COVER IN YELLOW SLOUGH; 5% PINK GRANULATION. MODERATE SEROSANGUINEOUS DRAINAGE. 3)RED BLANCHABLE AREA WITH MULTIPLE OPEN WOUNDS TO LEFT LOWER LEG; MEASURING 7 CM X 13.5 CM X 0.1 CM. SEROSANGUINEOUS DRAINAGE. IRREGULAR ATROPHIC MACERATED PERIWOUND AND 95% COVER IN YELLOW SLOUGH; 5% PINK GRANULATION; MODERATE SEROUS SANGUINOUS DRAINAGE. 4)RED BLANCHABLE AREA TO RIGHT POSTERIOR KNEE FOLD; MULTIPLE OPEN AREA DRAINING MODERATE SEROSANGUINEOUS DRAINAGE; MEASURING 8 CM X 7 CM X 0.1 CM; PINK GRANULATION 95%; RED GRANULATION 5%. 5)LEFT HEEL PRESSURE ULCER STAGE II; MEASURING 1.3CM X 1.5 CM X 0.3 CM; MACERATED PERIWOUND; COVERED WITH 75% YELLOW SLOUGH; 15% PINK GRANULATION. MODERATE SEROSANGUINEOUS DRAINAGE. 6)RIGHT HEEL PRESSURE ULCER STAGE II; MEASURING 3CM X 3.5 CM; MACERATED PERIWOUND; COVERED WITH 70% YELLOW SLOUGH AND 30% PINK GRANULATION. MODERATE SEROSANGUINEOUS DRAINAGE. RECOMMENDATIONS: NURSING TO CLEAN RIGHT HEEL AND LEFT HEEL ULCERS WITH NORMAL SALINE, PAT DRY WITH 4X4 GAUZE, APPLY MESALT; APPLY MAXORB AG, DRAWTEX AND COVER WITH ALLEVYN FOAM DAILY. NURSING TO CLEAN BILATERAL LOWER LEGS AND RIGHT POSTERIOR KNEE WITH NORMAL SALINE, PAT DRY WITH 4X4 GAUZE, APPLY MAXORB AG, COVER WITH DRAWTEX AND ABD PAD; LIGHTLY SECURE (NO PRESSURE) WITH KERLIX AND PAPER TAPE DAILY. NURSING TO CLEAN ABDOMINAL FOLD AND ERLIN AREA WITH NORMAL SALINE, PAT DRY WITH 4X4 GAUZE, APPLY MESALT TO OPEN AREAS AND APPLY NYSTATIN/TRIAMCINOLONE CREAM TO RED AREAS, COVER WITH MAXORB AG, DRAWTEX AND ABD PADS, SECURE WITH TAPE DAILY. NURSING TO APPLY BILATERAL HEEL PROTECTORS DAILY. NURSING TO CONTINUE TO MONITOR PATIENT AND KEEP SKIN CLEAN AND FREE FROM STOOL OR IRRITATING MOISTURE AND CONTINUE TO FOLLOW MODERATE PUP INTERVENTIONS DAILY. NURSING TO CONTINUE REPOSITION PT SIDE TO SIDE EVERY TWO HOURS AND NEEDED. NURSING TO APPLY ALTERNATING PRESSURE MATTRESS. NURSING TO CONTINUE TO OFFLOAD BILATERAL LOWER EXTREMITIES ALL TIMES WITH PILLOW SUSPENSION WHEN IN BED. NURSING TO CONTINUE TO ASSIST WITH PT NUTRITONAL SUPPLEMENTS TO ENSURE PROPER REQUIREMENTS FOR HEALING. NURSING TO ASSIST PT OUT OF BED FOR MEALS. NURSING TO RE- CONSULT WOUND CARE NEEDED. Addendum: 02/13/20 at 1721 by Antoinette Hyman RN Amended: Links added.
--- NOTE | 2020-02-13 18:04 | Consultation ---
DATE OF CONSULTATION: 02/13/2020 Cardiac consultation. REASON FOR CONSULTATION: Atrial fibrillation. HISTORY OF PRESENT ILLNESS: This is a 79-year-old lady, who came to this institution with cellulitis of the lower extremities, found to be in atrial fibrillation. She is hypertensive and diabetic. Cardiac consultation is obtained. The patient is really truly, does have lymphedema since 2004. It is very severe. It is affecting both lower extremities. There are several bouts of cellulitis in the past. She came in because for the last week or so, having severe skin changes and cellulitis mainly of the right lower extremity, though this extends to left lower extremity. The patient also having swelling of the legs. There is a tiny ulcer on the right heel. She came to the emergency room, the patient was also in atrial fibrillation having shortness of breath. Cardiac consultation is obtained. I visited with the patient who does have really truly chronic history of severe lymphedema since 2004. She is almost bedridden. She barely can do few activities. She does have marked swelling of the lower extremities. She does have aches and pain of the lower extremities. She denied having any fever or any chills. The patient at her level of activity she does have some shortness of breath and she attributed that to her obesity and her immobility. There is no angina. There is no prior cardiac disease. The patient is unaware of prior atrial fibrillation. REVIEW OF SYSTEMS: Review of system was very extensive, will be summarized for clarity. GENERAL: No fever, no chills. HEENT: Decreased hearing. No vision problem. PULMONARY AND CARDIAC: Easy fatigability, shortness of breath on exertion, sleep apnea, orthopnea, marked lymphedema and swelling of the lower extremity, occasional cough. No pleuritic chest pain. GI: Occasional constipation. No nausea, no vomiting, no hematemesis, no melena. : Increased frequency of urination, repeated urinary tract infection. EXTREMITIES: Lower extremity severe lymphedema, severe swelling, severe pain, very limited mobility, tendency to fall. NEUROLOGICAL: No localized weakness or deficit. SOCIAL HISTORY: She lives by herself. 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 She is living here because she was originally from [place] and her family is here. She was in [place] and [place] for the longest. 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 PAST MEDICAL HISTORY: 1. Diabetes mellitus severe end-organ damage. 2. Morbid obesity. 3. Hypertension. 4. Hypothyroidism. 5. Chronic lymphedema since 2004. 6. Decreased hearing. 7. . 8. Hysterectomy. 9. Hodgkin lymphoma with several neck biopsy and lymph node biopsy treated with [place] in 1965. HOME MEDICATIONS: Include: 1. Losartan 50 mg a day. 2. Hydrochlorothiazide 25 mg a day. 3. Lipitor 20 mg a day. 4. Levothyroxine 100 mcg a day. 5. Metformin 500 mg twice a day. Following admission, the patient on Zosyn, vancomycin, Lovenox twice a day and metoprolol 25 mg twice a day. ALLERGIES: LISINOPRIL CAUSING HER TO HAVE COUGH. FAMILY HISTORY: Father and mother in their 90s, although they have heart failure and MA, but at old age. She does have 2 brother, no sister and they are fine. She lost 1 of her 3 sons to HIV, no daughter. PHYSICAL EXAMINATION: VITAL SIGNS: Height of 5 feet 2 inches, weight of 245 pounds, morbidly obese. Blood pressure 100/70, heart rate irregularly regular with atrial fibrillation at 90, respiratory rate of 18, and temperature of 97.5 Fahrenheit. HEENT: Pupils are reactive. NECK: No elevation of jugular venous pulsation, very short neck, very difficult to assess jugular venous pulsation, scar of previous surgery, possible bilateral carotid bruit. No thyromegaly. CHEST: Morbid obesity. Bilateral coarse crackles. HEART: Irregular regular rate. Distant heart sound, unable to palpate the apex, S1 and S2 with ejection systolic murmur. ABDOMEN: Obese, soft. EXTREMITIES: Severe lymphedema all the way to the thighs, severe skin changes and evidence of severe cellulitis infection of the right foot above both ankles and the dorsum of the foot, to a less extent there are few spots and few areas of secretion over the left foot. LABORATORY DATA: Troponins are normal. BNP elevated at 796, triglycerides of 64, cholesterol of 101, HDL of 33, LDL of 55. Telemetry showing atrial fibrillation. IMPRESSION AND PLAN: 1. Severe lymphedema with secondary cellulitis. 2. Hypertension. 3. Diabetes mellitus with end-organ damage. 4. Status post radiation, but no chemotherapy for Hodgkin lymphoma, mainly of the neck. 5. Congestive heart failure. 6. Debility. 7. Very limited activities. Cardiac duke, my recommendation is to continue losartan, Lipitor, levothyroxine, diabetes management. Anticoagulation is a must on this patient since she does have high CHADS score. Furthermore she is immobilized and her lower extremity very high risk for DVT. The patient currently on Lovenox, which we will continue for the time being. However, on discharge probably it would be easier to put her on Eliquis 5 mg twice a day. Diuretics will be given gently. Her echo will be reviewed. MD BROOKE Alba/MODL /[id number]
--- NOTE | 2020-02-13 19:06 | NUR ---
PATIENT IS IN STABLE CONDITION WITH NO S/S OF RESPIRATORY DISTRESS. NO PAIN VOICED. TELEMETRY APPLIED. DRESSING TO ABDOMEN, GROIN, BILATERAL LOWER EXTREMITIES, POSTERIOR RIGHT LEG, AND BILATERAL HEEL ARE C/D/I. CALL LIGHT IS WITHIN REACH, PATIENT INSTRUCTED TO CALL FOR ASSISTANCE. BEDSIDE SHIFT REPORT GIVEN TO ONCOMING NURSE.
[2020-02-14] VITALS (8 sets, daily range): BP systolic 106–131; BP diastolic 69–95
[2020-02-14 06:13] LABS: BASOPHILS # (AUTO) 0.1 (0.0-0.1); EOSINOPHILS # (AUTO) 0.3 (0.0-0.4); EOSINOPHILS % 4.4 % (0.0-6.0); HEMATOCRIT 43.5 % (34.2-44.1); LYMPHOCYTES # (AUTO) 1.7 (1.0-3.2); LYMPHOCYTES % 28.1 % (18.0-39.1); MEAN CORPUSCULAR HEMOGLOBIN 26.6 pg (28-32); MEAN CORPUSCULAR HGB CONC 32.2 g/dL (31-35); MEAN CORPUSCULAR VOLUME 82.5 fL (81-99); MONOCYTES # (AUTO) 0.8 (0.2-0.8); MONOCYTES % 13.1 % (4.4-11.3); NEUTROPHILS # (AUTO) 3.1 (2.1-6.9); NEUTROPHILS % 53.1 % (38.7-80.0); PLATELET COUNT 168 x10e3/uL (140-360); RED BLOOD COUNT 5.27 x10e6/uL (3.6-5.1); RED CELL DISTRIBUTION WIDTH 17.5 % (11.7-14.4)
[2020-02-14 06:30] LABS: ALBUMIN 2.8 g/dL (3.5-5.0); ALBUMIN/GLOBULIN RATIO 1.1 (0.8-2.0); ANION GAP 17.6 mmol/L (8-16); CALCIUM 8.5 mg/dL (8.4-10.2); CREATININE, SERUM 1.03 mg/dL (0.57-1.11); POTASSIUM 3.6 mmol/L (3.5-5.1)
[2020-02-14] MEDS: PIPER-TAZ 3.375 GM 50 ML IV SCH ×3 (06:30→22:30)
[2020-02-14] MEDS: METOPROLOL TARTRATE 25 MG TAB PO SCH ×3 (06:31→22:30)
--- NOTE | 2020-02-14 07:15 | NUR ---
PATIENT IS IN STABLE CONDITION WITH NO S/S OF RESPIRATORY DISTRESS. NO PAIN VOICED. TELEMETRY APPLIED. BED ALARM APPLIED. CALL LIGHT IS WITHIN REACH, PATIENT INSTRUCTED TO CALL FOR ASSISTANCE.
[2020-02-14] MEDS: INSULIN REGULAR, HUMAN 100 UNIT/1 ML 3ML VIAL SQ SCH ×4 (07:30→22:33)
[2020-02-14] MEDS: VANCOMYCIN 1GM/NS 250 ML 250 ML IV SCH ×2 (11:30→23:30)
[2020-02-14] MEDS: NYSTATIN/TRIAMCINOLONE 15 GM CR TOP SCH (11:30)
[2020-02-14] MEDS: ENOXAPARIN SODIUM INJ 100 MG/ML SYR SC SCH ×2 (11:30→23:30)
[2020-02-14] MEDS ORDERED: ACETAMINOPHEN 325 MG TAB ONE (16:32)
[2020-02-14] MEDS: ACETAMINOPHEN 325 MG TAB PO PRN (16:36)
[2020-02-14] MEDS: FUROSEMIDE 40 MG TAB PO SCH (17:09)
--- NOTE | 2020-02-14 19:02 | NUR ---
PATIENT IS IN STABLE CONDITION WITH NO S/S OF RESPIRATORY DISTRESS. NO PAIN VOICED. TELEMETRY APPLIED. WOUND DRESSING IS C/D/I. CALL LIGHT IS WITHIN REACH, PATIENT INSTRUCTED TO CALL FOR ASSISTANCE. BEDSIDE SHIFT REPORT GIVEN TO ONCOMING NURSE.
--- NOTE | 2020-02-14 19:30 | NUR ---
Nutrition Intervention Note RD Recommendation(s) for Physician: - Continue 1800 ADA diet - Recommend Glucerna shakes BID for adequacy - Consider Emmanuel 1 packet BID to promote wound healing - Recommend Vitamin C and MVI with minerals to promote wound healing Plan of Care: RD following, ONS and vit/min rec's, monitoring for tolerance and adequacy Nutrition reason for involvement: Nutrition Risk Trigger- MST 4 RD Assessment 02/13: 79 YOF admitted for bilateral lower leg cellulitis, pt seen today per MST screen. Pt reports good appetite and po intake, noted 75-100% of meals per chart. Pt reports fluctuating intake [employer]CH[employer]IC 2/2 inability to perform ADLs and prepare meals at times, however appetite remained good [employer]ER MECH[employer]IC. Pt reports progressive wt loss since moving here last December 2018, she estimates that she weighed 260 lb a year ago- significant wt loss noted. Pt denies any GI distress. Pt with no questions or concerns at time of visit. ONS discussed with pt, receptive- RD to order. Chart reviewed. Will continue to monitor. Principal Problems/Diagnoses: bilateral lower leg cellulitis PMH: DM, morbid obesity, HTN, hypothyroidism, chronic lymphedema GI: LBM 02/13 Skin: bilateral heels stage II PU, wounds to abdominal folds- no staging, L lower leg open wounds- no staging Labs: 02/13: Na 137, K 3.6, BUN 23, Cr 1.03, Gluc 81, POC Gluc 78-143 Meds: abx, aldactone, lasix, zofran Ht: 62in Wt: 201 lb BMI: 36.8 kg/m2 IBW: 110 lb Malnutrition Evaluation (02/14/20) The patient does not meet criteria for a specified degree of malnutrition at this time. Will re-evaluate at follow-up as appropriate. Energy intake: does not meet criteria- fluctuating po intake, currently meeting needs Weight loss: severe- pt with 23% wt loss in 1 year per UBW of 160# last December Fat loss: none, ample skinfold thickness Muscle loss: none, should round, clavicle not visible Supporting Evidence: Fluid accumulation: none observed Functional Status: not assessed Nutrition Prescription (Diet Order):1800 ADA Estimated Nutritional Needs: 2623-0213 calories/day (22-25 kcal/kg IBW) 75-100 g protein/day (1.5-2 g pro/kg IBW) Diet Adequacy: Meeting protein needs, Meeting fluid needs Diet Tolerance: tolerating po Diet Education Needs Assessment: Diet education not indicated at this time. Nutrition Care Level: moderate Nutrition Diagnosis: Inadequate energy and protein intake related to ability to prepare meals due to current medical conditions [employer] MECH[employer]IC as evidenced by progressive wt loss and not meeting needs. Goal: Patient will meet 75-100% of estimated needs by follow up Progress: N/A Interventions: -CHO-modified diet, Commercial beverage, Multivitamin/mineral supplement therapy, Collaboration with other providers Monitoring/Evaluation: -Total energy intake, Total protein intake, Modified diet, Liquid supplement, Weight change Signed: Paulina Wiley RD, LD, [facility]
[2020-02-15] VITALS (8 sets, daily range): BP systolic 114–143; BP diastolic 81–96
[2020-02-15] MEDS: ACETAMINOPHEN 325 MG TAB PO PRN (02:12)
[2020-02-15] MEDS: PIPER-TAZ 3.375 GM 50 ML IV SCH ×3 (05:35→22:10)
[2020-02-15] MEDS: FUROSEMIDE 40 MG TAB PO SCH ×2 (05:35→17:15)
[2020-02-15] MEDS: METOPROLOL TARTRATE 25 MG TAB PO SCH ×3 (05:35→16:21)
--- NOTE | 2020-02-15 07:00 | NUR ---
received bedside report. pt is alert sitting up in bed, no s/s of distress. call light within reach and instructed pt to call for help.
[2020-02-15 07:04] LABS: HEMATOCRIT 40.8 % (34.2-44.1); HEMOGLOBIN 13.7 g/dL (12.0-16.0); MEAN CORPUSCULAR HEMOGLOBIN 28.4 pg (28-32); MEAN CORPUSCULAR HGB CONC 33.6 g/dL (31-35); MEAN CORPUSCULAR VOLUME 84.5 fL (81-99); PLATELET COUNT 164 x10e3/uL (140-360); RED BLOOD COUNT 4.83 x10e6/uL (3.6-5.1)
[2020-02-15 07:28] LABS: ANION GAP 16.8 mmol/L (8-16); CALCIUM 8.4 mg/dL (8.4-10.2); CREATININE, SERUM 1.11 mg/dL (0.57-1.11); POTASSIUM 3.8 mmol/L (3.5-5.1)
[2020-02-15] MEDS: INSULIN REGULAR, HUMAN 100 UNIT/1 ML 3ML VIAL SQ SCH ×4 (07:30→21:00)
[2020-02-15 07:51] LABS: LYMPHOCYTES % (MANUAL) 15 % (19-48); MONOCYTES % (MANUAL) 6 % (3.4-9.0); NEUTROPHILS % (MANUAL) 75 % (40-74)
[2020-02-15 07:53] LABS: ANISOCYTOSIS MODERATE; BURR CELLS MODERATE; PLATELET ESTIMATE ADEQUATE; RBC MORPHOLOGY COMMENT ABNORMAL
[2020-02-15 07:54] LABS: ELLIPTOCYTE, RBC SLIGHT
[2020-02-15 07:55] LABS: SCHISTOCYTES RARE
[2020-02-15 07:56] LABS: ACANTHOCYTES FEW
[2020-02-15 07:57] LABS: PLATELET MORPHOLOGY COMMENT FEW LARGE
[2020-02-15] MEDS: SPIRONOLACTONE 25 MG TAB PO SCH (09:14)
[2020-02-15] MEDS: LOSARTAN POTASSIUM 25 MG TAB PO SCH (09:14)
[2020-02-15] MEDS: VANCOMYCIN 1GM/NS 250 ML 250 ML IV SCH ×2 (11:42→23:08)
--- NOTE | 2020-02-15 15:13 | NUR ---
infectious disease [place] note prepared for this late entry for February 14 2020.5 the patient was seen and examined chart reviewed. Part of her review of system is otherwise unremarkable HEENT negative for were negative cardiac negative negative. She says she is feeling better but weak. Her physical examination currently alert oriented vitals stable currently afebrile HEENT she is not to take neck supple chest clear bilateral heart S1-S2 abdomen soft but are present extremities the erythema has subsided significantly. ENERAL: She is currently alert and oriented. VITAL SIGNS: Stable. Currently afebrile. HEENT: She does not appear icteric. NECK: Supple. CHEST: Clear bilateral. HEART: S1, S2. ABDOMEN: Soft. EXTREMITIES: Bilateral lower extremity, there is erythema, there is edema. IMPRESSION: 1. Cellulitis of bilateral lower extremities, bilateral lymphedema. Continue vancomycin. Continue with Zosyn, thigh-high elastic stocking. We will follow vancomycin level. Recheck CBC. continue supportive care
--- NOTE | 2020-02-15 15:14 | NUR ---
infectious disease progress note Review of system is negative present time February 14, 20192022. Patient seen and examined chart reviewed her physical examination currently alert oriented vital stable currently afebrile HEENT she is not to take neck supple chest clear bilateral heart S1-S2 no shows for murmur abdomen soft also present extremity edema skin no rash. ENERAL: She is currently alert and oriented. VITAL SIGNS: Stable. Currently afebrile. HEENT: She does not appear icteric. NECK: Supple. CHEST: Clear bilateral. HEART: S1, S2. ABDOMEN: Soft. EXTREMITIES: Bilateral lower extremity, there is erythema, there is edema. IMPRESSION: 1. Cellulitis of bilateral lower extremities, bilateral lymphedema. Continue vancomycin. Continue with Zosyn, thigh-high elastic stocking. We will follow vancomycin level. Recheck CBC. can change to oral doxycycline 100 mg by mouth twice a day continue thigh-high elastic stocking
[2020-02-15] MEDS ORDERED: TRAMADOL HCL 50 MG TAB PO PRN (15:45)
[2020-02-15] MEDS: APIXABAN 5 MG TABLET PO SCH (16:20)
[2020-02-15] MEDS: NYSTATIN/TRIAMCINOLONE 15 GM CR TOP SCH (18:54)
[2020-02-16] VITALS: BP 124/97
[2020-02-16 01:35] VITALS: BP 125/80
--- NOTE | 2020-02-16 01:43 | NUR ---
PT HAD A 3 BEAT AND 5 BEAT RUN OF V-TACH. PT CONVERTED BACK TO A-FIB IMMEDIATELY AFTER V TACH RUNS. VITALS STABLE. DR. COOPER NOTIFIED. WILL CONTINUE WITH LABS ORDERED FOR THIS AM PER MD. NO ADDITIONAL ORDERS AT THIS TIME. WILL CONTINUE TO MONITOR PT.
[2020-02-16 04:00] VITALS: BP 132/98
[2020-02-16] MEDS: PIPER-TAZ 3.375 GM 50 ML IV SCH ×2 (05:39→13:48)
[2020-02-16] MEDS: FUROSEMIDE 40 MG TAB PO SCH (05:39)
[2020-02-16 05:47] LABS: BASOPHILS # (AUTO) 0.1 (0.0-0.1); BASOPHILS % 0.8 % (0.0-1.0); EOSINOPHILS # (AUTO) 0.2 (0.0-0.4); EOSINOPHILS % 2.3 % (0.0-6.0); HEMATOCRIT 41.9 % (34.2-44.1); HEMOGLOBIN 13.2 g/dL (12.0-16.0); LYMPHOCYTES # (AUTO) 2.1 (1.0-3.2); LYMPHOCYTES % 32.2 % (18.0-39.1); MEAN CORPUSCULAR HEMOGLOBIN 25.4 pg (28-32); MEAN CORPUSCULAR HGB CONC 31.5 g/dL (31-35); MEAN CORPUSCULAR VOLUME 80.6 fL (81-99); MONOCYTES # (AUTO) 0.6 (0.2-0.8); MONOCYTES % 9.5 % (4.4-11.3); NEUTROPHILS # (AUTO) 3.6 (2.1-6.9); NEUTROPHILS % 54.6 % (38.7-80.0); PLATELET COUNT 228 x10e3/uL (140-360); RED CELL DISTRIBUTION WIDTH 17.6 % (11.7-14.4)
[2020-02-16 06:13] LABS: ALBUMIN 2.6 g/dL (3.5-5.0); ANION GAP 17.3 mmol/L (8-16); CALCIUM 8.2 mg/dL (8.4-10.2); CREATININE, SERUM 0.97 mg/dL (0.57-1.11); POTASSIUM 3.3 mmol/L (3.5-5.1)
[2020-02-16] MEDS: INSULIN REGULAR, HUMAN 100 UNIT/1 ML 3ML VIAL SQ SCH ×2 (07:30→11:30)
[2020-02-16] MEDS: SPIRONOLACTONE 25 MG TAB PO SCH (08:46)
[2020-02-16] MEDS: LOSARTAN POTASSIUM 25 MG TAB PO SCH (08:47)
[2020-02-16] MEDS: APIXABAN 5 MG TABLET PO SCH (08:47)
[2020-02-16] MEDS: METOPROLOL TARTRATE 25 MG TAB PO SCH (08:47)
[2020-02-16] MEDS: ACETAMINOPHEN 325 MG TAB PO PRN (08:48)
[2020-02-16] MEDS: NYSTATIN/TRIAMCINOLONE 15 GM CR TOP SCH (08:48)
[2020-02-16 08:50] VITALS: BP 139/99
[2020-02-16 09:01] VITALS: BP 139/99
--- NOTE | 2020-02-16 09:56 | Consultation ---
DATE OF CONSULTATION: Wound Consultation HISTORY OF PRESENT ILLNESS: A 79-year-old female patient lives by herself at home. Has chronic bilateral leg edema, admitted with ulcer to the bilateral heel and bilateral lower leg. Wound consult was called. The patient is morbidly obese. She has cellulitis involving both lower extremities. She denies having pets scratching the leg, however, she has multiple spots on the legs consistent with some type of bite or scratching or infected. Also right leg, the patient has a large shallow ulcer measuring 10 x 10 cm, 100% pink with periwound inflammation and cellulitis. PAST MEDICAL HISTORY: Hypothyroidism, diabetes mellitus, chronic edema, Hodgkin's lymphoma, neck biopsy treated with [place] in 1965, and morbid obesity. ALLERGIES: TO LISINOPRIL, CAUSING COUGH. MEDICATIONS: Losartan 50 mg daily, hydrochlorothiazide 25 mg daily, Lipitor 20 mg daily, levothyroxine 100 mcg daily, and metformin 500 mg twice a day. PHYSICAL EXAMINATION: VITAL SIGNS: Pulse 109, blood pressure 78/54, oxygen 100%. Height 5 feet 9 inches, weight 210 pounds. HEENT: Normal. NECK: No JVD. LUNGS: Bilateral air entry normal. CVS: Normal. ABDOMEN: Soft. EXTREMITIES: Lower extremities, bilateral leg edema present. Bilateral leg ulcer present. Left leg, multiple scratch rendon with impetigo-like lesion noted. Right leg, the patient has shallow ulcer with cellulitis involving lower third of the right medial leg. On the left heel, the patient has stage III pressure ulcer. On the right plantar foot, the patient has stage II pressure ulcer. PLAN: 1. We will apply Aquacel on all the wound, Kerlix and Coban to both lower extremities. 2. Needs IV antibiotic for cellulitis. Thank you for consultation. MD SUMI Graf/AJAY /[id number]
[2020-02-16] MEDS ORDERED: POTASSIUM CHLORIDE 20 MEQ TAB CR PO ONE (10:00)
--- NOTE | 2020-02-16 12:49 | NUR ---
SPOKE WITH PT ABOUT SNF ORDER AND FACILITIES IN NETWORK, SHE WANTS [facility] SIGNED CHOICE, FILED IN CHART AND FAXED CLINICALS TO [facility]. COMPLETED PASRR, RTF AND COVID FORM, PUT WITH PACKET AT STATION.
[2020-02-16 12:54] VITALS: BP 116/82
--- NOTE | 2020-02-16 14:29 | NUR ---
RETIREMENT FACILITY DISCHARGE INFORMATION PATIENT HAS BEEN ACCEPTED TO: NAME: [facility] ADDRESS:[address] [place] [address] ACCEPTING MD: JONO ROOM:[id number] NURSE CALL REPORT TO: JONO IMM SIGNED AND OBTAINED (if applicable): IMM THE FOLLOWING DOCUMENTS MUST ACCOMPANY PATIENT FOR TRANSFER: COPIED CHART:PACKET
--- NOTE | 2020-02-16 15:33 | NUR ---
Spoke with Dr. Auguste and received discharge orders. Spoke with Dr. Gaviria while he is here to see pt and received orders to dc vanc and zosyn. Start rocephin 1g iv daily x7 days.
--- NOTE | 2020-02-16 19:24 | Progress Note ---
DATE: SUBJECTIVE: Ms. Watson is doing better. PHYSICAL EXAMINATION: GENERAL: She is currently alert and oriented. VITAL SIGNS: Stable, currently afebrile. HEENT: She is not icteric. NECK: Supple. CHEST: Clear. HEART: S1 and S2. No murmur. ABDOMEN: Soft. Bowel sounds present. EXTREMITIES: No edema. SKIN: No rash. The heels continue with bilateral heel ulcers. IMPRESSION: Cellulitis, improving; bilateral leg edema, continue with local care, thigh-high elastic stocking; bilateral lower extremities pressure ulcer, continue with local care. I think the patient will benefit from IV antibiotic given her weight. We will put her on Rocephin 1 g daily. Continue with local care. The plan for her to go to an LTAC and discontinue the antibiotics. Please refer to orders in the chart. MD MIESHA Casillas/AJAY /[id number]
== END 2020-02-16 16:41 | DRG 602 ==
LOC: ER 19:53 → ERHOLD 23:28 → MED/SURG3 02-13 00:05
DX: L03.119 Cellulitis of unspecified part of limb (principal); I50.23 Acute on chronic systolic (congestive) heart failure; I48.91 Unspecified atrial fibrillation; I89.0 Lymphedema, not elsewhere classified; I11.0 Hypertensive heart disease with heart failure; E11.8 Type 2 diabetes mellitus with unspecified complications; E66.01 Morbid (severe) obesity due to excess calories; Z68.36 Body mass index [BMI] 36.0-36.9, adult; Z85.72 Personal history of non-Hodgkin lymphomas; Z11.59 Encounter for screening for other viral diseases
CPT/HCPCS: 36415; 71045; 80048; 80053; 80061; 80202; 82270; 82550; 82553; 82948; 83036; 83605; 83880; 84443; 84484; 85007; 85025; 85027; 85610; 85730; 87040; 93005; 93306; 99284; J1650; J1817; J2543; J3370; J7030; J7050; U0002